=== PATIENT | male | born 1970 | race Caucasian/White ===

== ENCOUNTER 2017-06-15 16:13 | Emergency (ER) | payer OTHER ==
[2017-06-15 16:22] VITALS: BP 129/81; PULSE 75; TEMP 98.2; BMI 26.4
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
== END 2017-06-15 17:31 | disposition home or self-care (01) ==
LOC: JERFT 16:13
DX: G62.9 Polyneuropathy, unspecified (principal)
CPT/HCPCS: 99281-25